=== PATIENT | female | born 1960 | race Caucasian/White ===

== ENCOUNTER 2017-12-16 08:23 | Day surgery (SDC) | payer OTHER ==
[2017-12-09 11:32] VITALS: BMI 20.7
[2017-12-16 10:08] VITALS: PULSE 62; TEMP 97.4
[2017-12-16 10:19] VITALS: BP 126/78
--- NOTE | 2017-12-20 11:34 | PATH ---
Surgical Pathology Report Patient Name: DARRYN JOHNSON [facility]. Rec. #: [id number] /Age/Gender: 1960 (Age: 57) / F Account: [id number] Location: [facility]-ENDOSCOPY Taken: 12/16/2017 Received: 12/16/2017 Reported: 12/20/2017 Physicians: Carlin Oliveira M.D. Specimen(s) Received A: BX DUODENUM SECOND PART OF DUODENUM B: BX ANTRUM C: GE JUNCTION D: BX ESOPHAGUS Clinical History Gastritis, r/o celiac, r/o H. pylori Final Diagnosis A. SECOND PORTION DUODENUM, BIOPSY: DUODENAL MUCOSA WITH MILD CHRONIC DUODENITIS. NO HISTOLOGIC EVIDENCE OF CELIAC DISEASE. B. ANTRUM, BIOPSY: GASTRIC MUCOSA WITH MILD CHRONIC GASTRITIS. POSITIVE FOR INTESTINAL METAPLASIA. IMMUNOSTAIN IS NEGATIVE FOR H. PYLORI ORGANISMS. C. GE JUNCTION, BIOPSY: ESOPHAGEAL (SQUAMOUS) MUCOSA WITH REFLUX ESOPHAGITIS. SEPARATE GASTRIC MUCOSA WITH MILD CHRONIC GASTRITIS. NEGATIVE FOR INTESTINAL METAPLASIA. D. ESOPHAGUS, BIOPSY: ESOPHAGEAL (SQUAMOUS) MUCOSA WITHMILD CHRONIC INFLAMMATION. Electronically Signed Vee Feliciano M.D. Gross Description A. Received in formalin, labeled "second portion duodenum" are two hadley, irregular portions of soft tissue measuring 0.4 cm. in greatest dimension. The specimens are submitted in toto in one cassette. B. Received in formalin, labeled "antrum" are two hadley, irregular portions of soft tissue measuring 0.4 cm. in greatest dimension. The specimens are submitted in toto in one cassette. C. Received in formalin, labeled "GE junction" are two hadley, irregular portions of soft tissue measuring 0.3 cm. in greatest dimension. The specimens are submitted in toto in one cassette. D. Received in formalin, labeled "esophagus and" is a hadley, irregular portion of soft tissue measuring 0.3 cm. in greatest dimension. The specimens are submitted in toto in one cassette. __ KWS/12/17/2017 sulki/12/17/2017
== END 2017-12-16 10:50 | disposition home or self-care (01) ==
LOC: FASU-ENDO 08:23
PROVIDERS: ATTEND Internal Medicine Gastroenterology
PROC: 0DB28ZX Excision of Middle Esophagus, Via Natural or Artificial Opening Endoscopic, Diagnostic (ICD-10-PCS; 2017-12-16)
PROC: 0DB48ZX Excision of Esophagogastric Junction, Via Natural or Artificial Opening Endoscopic, Diagnostic (ICD-10-PCS; 2017-12-16)
PROC: 0DB98ZX Excision of Duodenum, Via Natural or Artificial Opening Endoscopic, Diagnostic (ICD-10-PCS; principal; 2017-12-16 09:23)
PROC: 0DB68ZX Excision of Stomach, Via Natural or Artificial Opening Endoscopic, Diagnostic (ICD-10-PCS; 2017-12-16 09:23)
DX: K29.50 Unspecified chronic gastritis without bleeding (principal); K29.80 Duodenitis without bleeding; K21.0 Gastro-esophageal reflux disease with esophagitis
CPT/HCPCS: 88305-TC; 88342-TC